=== PATIENT | female | born 1945 | race Caucasian/White ===

== ENCOUNTER 2020-07-10 18:41 | Observation (INO) | payer OTHER, SELFPAY ==
--- NOTE | ~2020-07-10 | US_ITS ---
EXAMINATION: US carotid duplex BI DATE: 07/11/2020 10:22 INDICATION: Dizziness. TECHNIQUE: Grayscale, color Doppler, and pulsed Doppler images of the cervical carotid arteries were obtained. The degree of vessel stenosis is placed in one of the following categories: normal, <50%, 5 0-69%, >=70% but less than near-occlusion, near-occlusion, or total occlusion. Note that percent sten osis relative to normal distal artery lumen diameter is indirectly measured from velocity measurement s as described by Bruno, et al. Radiology 2003; 229:340-346. COMPARISON: None. FINDINGS: RIGHT: The right common carotid artery (CCA) peak systolic velocity (PSV) is 74 cm/s. The right internal car otid artery (ICA) PSV is 57 cm/s. The right ICA end-diastolic velocity (EDV) is 21 cm/s. The right IC A/CCA PSV ratio is 0.8. Grayscale and color Doppler images yield an estimate of <50% diameter reducti on from plaque in the ICA. There is antegrade flow in the right vertebral artery. LEFT: The left CCA PSV is 91 cm/s. The left ICA PSV is 63 cm/s. The left ICA EDV is 21 cm/s. The left ICA/C CA PSV ratio is 0.7. Grayscale and color Doppler images yield an estimate of <50% diameter reduction from plaque in the ICA. There is antegrade flow in the left vertebral artery. IMPRESSION: 1. <50% stenosis in the right internal carotid artery. 2. <50% stenosis in the left internal carotid artery. Reviewed, dictated and finalized at location A. [employer]
--- NOTE | 2020-07-10 19:15 | ADMGEN ---
This patient, Marielos Botello, was admitted to Medical Room 256-. Patient/family oriented to hospital policies and general routines including ID bracelet, bed and alarms, visiting hours, pain management, procedures, bathroom and other care routines, personal items, smoking policy, room service/diet, and visiting hours. Information on how to activate the Rapid Response Team has been discussed. Patient/Family are encouraged to report perceived risks to care and to ask questions if they do not understand what they are told or what they should do.
[2020-07-10 20:00] VITALS: PULSE 81
[2020-07-10 22:00] VITALS: BP 140/78; PULSE 92; RESP 18; TEMP 36.3; O2SAT 96
[2020-07-10 22:12] VITALS: BMI 24.7
[2020-07-10 22:18] VITALS: BP 140/78; PULSE 92; RESP 18; TEMP 36.3; O2SAT 96; BMI 24.7
--- NOTE | 2020-07-10 23:38 | PM.IMHP ---
H&P: HPI History of Present Illness Date/Time: 07/10/20 23:38 Chief Complaint: Dizziness Narrative: Marielos Botello is a 75 year old female who is a direct admit from [facility]. The patient stated that she woke up around 8:00 a.m. this morning and felt dizzy she got out of bed. She has not tried any new medications. She has not had any recent upper respiratory infection no fever no chills. No recent sick contacts. The patient went to [facility] in [place] and had a CT of the brain performed which showed nothing acute no hemorrhage. The patient has had stew cerebral aneurysms in the past and has clips and coil. The patient stated that she does have a card stating that she cannot receive an MRI. [facility] does not have a neurologist and requested that the patient be seen here. Labs not appear to be abnormal. The patient was so dizzy that she had difficulty ambulating. She needed 1 assist to ambulate. Her EKG was reported to me is negative she does have hit a history of having hypertension but no previous TIAs or CVAs. The patient was nauseated earlier but did not have any vomiting she told me she did receive Zofran at [facility]. I was given report from Dr. Leung at [facility]. The patient is being admitted here as observation status on the date of service of 07/10/2020 Review of Systems Review of Systems: All systems reviewed & are unremarkable except as noted in HPI and below Constitutional: Constitutional: Reports as per HPI and Reports no additional constitutional complaints Eyes: Eyes: Reports as per HPI and Reports no additional eye complaints ENT: Reports system reviewed and no additional complaints, except as documented and Reports Normal hearing present Cardiovascular: Cardiovascular: Reports no additional cardiovascular complaints Respiratory: Respiratory: Reports no additional respiratory complaints and Reports no additional respiratory complaints Gastrointestinal: Gastrointestinal: Reports as per HPI and Reports no additional gastrointestinal complaints Musculoskeletal: Musculoskeletal: Reports no additional musculoskeletal complaints Integumentary/Breasts: Skin/Breast: Reports system reviewed and no additional complaints, except as docu and Reports as per HPI Neurologic: Reports system reviewed and no additional complaints, except as documented, Reports as per HPI and Reports Normal hearing present Psychiatric: Psychiatric: Reports no additional psychiatric complaints and Reports as per HPI Endocrine: Endocrine: Reports no additional endocrine complaints Hematologic/Lymphatic: Hematologic/Lymphatic: Reports no additional hematologic/lymphatic complaints Allergic/Immunologic: Allergic/Immunologic: Reports no additional allergic/immunologic complaints [facility] Past Medical History Medical History (Updated 07/10/20 @ 23:45 by Gabi Cole NP) AAA (abdominal aortic aneurysm) Being monitored out patient Brain aneurysm History of brain choroidal and clip COPD (chronic obstructive pulmonary disease) Depression with anxiety Hyperlipidemia Hypertension Osteopenia Tobacco abuse Surgical History Surgical History (Updated 07/10/20 @ 23:45 by Gabi Cole NP) History of appendectomy History of colonoscopy Family History Family History Mother Family history of heart disease in male family member before age 55 Family history of diabetes mellitus in first degree relative Sibling Family history of diabetes mellitus in first degree relative Father Leukemia Social History Social History (Updated 07/10/20 @ 23:46 by Gabi Cole NP) Social History: The patient lives with her who is the durable power vamp liner for healthcare. 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 Patient continues to smoke a pack a cigarettes a day for 50 years. No alcohol marijuana or illicit drugs. T
[2020-07-11] VITALS (9 sets, daily range): BP systolic 141–182; BP diastolic 83–117; PULSE 66–100; RESP 16–20; TEMP 35.9–36.6; O2SAT 91–97
--- NOTE | 2020-07-11 | ECHO_ITS ---
Patient Info Name: Marielos Botello Age: 75 years : 1945 Gender: Female Ht: 62 in Wt: 135 lbs BSA: 1.65 m2 HR: 85 bpm BP: 146 / 92 mmHg Heart Rhythm: Sinus Rhythm Technical Quality: Good Exam Date: 07/11/2020 8:10 AM Exam Location: [facility] Pulmonary Exam Room: 256 Patient Status: Inpatient Admit Date: 07/10/2020 Staff Ordering Physician: Gabi Cole NP Compliance Testing Analyst: Keily Jacques RDCS Attending Provider: Anderson Murphy MD Referring Physician: Douglas MCDONALD; Exam Type: CA echo doppler w bubble study Study Info Indications - DIZZINESS Complete two-dimensional, color flow and Doppler transthoracic echocardiogram is performed with agitated saline. Contrast/Agitated Saline Contrast/Ag. Saline: Agitated Saline Amount: 20.00 ml Summary 1. Left ventricular chamber dimension is normal. 2. Left ventricular systolic function is normal, estimated at 65-70%. 3. There is moderately increased left ventricular wall thickness. 4. The left ventricular diastolic function is grade I diastolic dysfunction. 5. Intact interatrial septum visualized by color flow and agitated saline imaging. 6. There is mild aortic valve calcification. 7. There is mild tricuspid valve regurgitation. 8. There is mild mitral valve regurgitation. 9. The mitral valve annulus is severely calcified. 10. The mitral valve has thickened leaflets. Left Ventricle Left ventricular chamber dimension is normal. Left ventricular systolic function is normal, estimated at 65-70%. There is moderately increased left ventricular wall thickness. The left ventricular diastolic function is grade I diastolic dysfunction. Right Ventricle Right ventricular chamber dimension is normal. Right ventricular systolic function is normal. Left Atria Left atrial chamber dimension is normal. Right Atria Right atrial chamber dimension is normal. Atrial Septum Intact interatrial septum visualized by color flow and agitated saline imaging. Aortic Valve The aortic valve is trileaflet. There is mild aortic valve sclerosis. There is no aortic valve stenosis. There is trace aortic valve regurgitation. There is mild aortic valve calcification. Pulmonic Valve The pulmonic valve is normal. There is no pulmonic valve stenosis. Trivial pulmonic insufficiency. Mitral Valve The mitral valve has thickened leaflets. There is no mitral valve stenosis. There is mild mitral valve regurgitation. The mitral valve annulus is severely calcified. Tricuspid Valve The tricuspid valve leaflets are normal. There is no significant tricuspid valve stenosis. There is mild tricuspid valve regurgitation. No pulmonary hypertension, estimated pulmonary arterial systolic pressure is 32 mmHg. Pericardium/Pleural The pericardium appears normal. There is no pericardial effusion. Inferior Vena Cava Normal inferior vena cava with >50% collapse upon inspiration consistent with normal right atrial pressure, 10 mmHg. Aorta The aortic root size at the sinus of Valsalva is normal. There is mild aortic atherosclerosis. Left Ventricular Outflow Tract Name Value Normal LVOT 2D LVOT Diameter
[2020-07-11] MEDS: SODIUM CHLORIDE 0.9% IV 1,000 ML 100 ML IV CONT ×2 (00:40→10:31)
[2020-07-11 00:54] LABS: Alanine Aminotransferase 21 U/L (4-35); Albumin Level 3.9 g/dL (3.5-5.1); Alkaline Phosphatase 91 U/L (38-126); Anion Gap 3 mmol/L (8-16); Aspartate Amino Transferase 30 U/L (14-36); Bilirubin,Total 0.3 mg/dL (0.2-1.3); Blood Urea Nitrogen 19 mg/dL (7-17); Calcium 9.7 mg/dL (8.4-10.2); Carbon Dioxide 33 mmol/L (22-30); Chloride 101 mmol/L (98-107); Estimated CRCL calculation 47 ml/min; Estimated Glomerular Filt Rate > 60; Glucose 116 mg/dL (65-105); Potassium 3.9 mmol/L (3.4-5.0); Sodium 137 mmol/L (137-145)
[2020-07-11 01:22] LABS: Add Urine Microscopic? YES; Appearance Urine Clear (Clear); Bilirubin Urine Negative (Negative); Blood Urine Negative (Negative); Color Urine Straw (Yellow); Glucose Urine UA Negative (Negative); Ketones Urine Negative (Negative); Leukocyte Esterase Ur Negative LEU/UL (Negative); Mucus Urine Rare /lpf; Nitrate Urine Negative (Negative); Protein Urine 2+ mg/dL (Negative); RBC Urine 0-2 /hpf (0-2); Specific Grav Ur 1.012 (1.001-1.035); Squamous Epithelial Cell Urine Rare /hpf (Few); Urobilinogen Urine Negative mg/dL (<2.0); WBC Urine 0-3 /hpf
[2020-07-11 01:40] LABS: Bacteria Urine Trace /hpf
[2020-07-11 06:00] LABS: Basophils Absolute Auto 0.1 K/mm3 (0.0-0.1); Basophils Percent Auto 0.7 % (0.2-1.2); Eosinophils Absolute Auto 0.5 K/mm3 (0-0.3); Eosinophils Percent Auto 5.2 % (0-4.4); Immature Granulocyte Absolute 0.05 K/mm3 (0.00-0.031); Immature Granulocyte Percent A 0.5 % (0-0.5); Lymphocytes Percent Auto 20.5 % (18.3-44.2); Mean Corpuscular HGB Conc 33.3 g/dl (32-36); Mean Corpuscular Hemoglobin 29.8 pg (26-34); Mean Corpuscular Volume 89.4 fl (80-100); Mean Platelet Volume 10.5 fl (7.4-10.4); Monocytes Absolute Auto 0.8 K/mm3 (0.1-0.6); Monocytes Percent Auto 7.3 % (2.6-8.5); Neutrophils Absolute Auto 6.8 K/mm3 (1.3-6.7); Neutrophils Percent Auto 65.8 % (45.5-73.1); Platelet Count Result 254 k/mm3 (150-375); Red Cell Distribution Width 14.4 % (11.5-14.5); White Blood Count 10.3 K/mm3 (4.5-10.0)
[2020-07-11 06:21] LABS: Anion Gap 2 mmol/L (8-16); Blood Urea Nitrogen 16 mg/dL (7-17); CRP 0.6 mg/dL (<1.0); Calcium 9.3 mg/dL (8.4-10.2); Carbon Dioxide 31 mmol/L (22-30); Chloride 101 mmol/L (98-107); Estimated CRCL calculation 54 ml/min; Estimated Glomerular Filt Rate > 60; Glucose 98 mg/dL (65-105); Lactate Dehydrogenase 400 U/L (313-618); Potassium 3.8 mmol/L (3.4-5.0); Sodium 134 mmol/L (137-145)
[2020-07-11 07:08] LABS: Thyroid Stimulating Hormone Reflex 0.373 uIU/mL (0.465-4.68)
[2020-07-11] MEDS: hydroCHLOROthiazide 25 MG TABLET PO (08:47)
[2020-07-11] MEDS: lisinopriL 20 MG TABLET PO (08:47)
[2020-07-11] MEDS: SIMVASTATIN 10 MG TABLET PO (08:47)
[2020-07-11] MEDS: ASPIRIN 81 MG CHEWABLE TABLET 324 MG PO (08:48)
[2020-07-11 10:10] LABS: Total Triiodothyronine (T3) 1.15 NG/ML (0.97-1.69)
--- NOTE | 2020-07-11 13:44 | WPDNEURCNPN ---
Assessment and Plan Assessment and plan (1) Depression with anxiety: Code(s): F41.8 - Other specified anxiety disorders Status: Chronic (2) AAA (abdominal aortic aneurysm): Code(s): I71.4 - Abdominal aortic aneurysm, without rupture Status: Chronic (3) Vertigo: Code(s): R42 - Dizziness and giddiness Status: Acute Additional Plan Reviewed all the information as the patient cannot have the MRI of the brain I will talk to her about the possibility of doing CTA to evaluate the intra and extracranial circulation in the meantime she will continue the medication as such and also echocardiogram. Consult date: 07/11/20 Time Seen: 13:44 HPI: Marielos Botello is a 75 year old female admitted to the hospital on transfer from [facility]. As per the information available she woke up around 8:00 a.m. felt dizzy when she got out of the bed. She gave no history of any new medications, respiratory illness, and no recent contact with anyone sickness. She went to [facility] in [place] where CT scan of the head was done which came back negative. Patient has had cerebral aneurysm in the past with clipping and coiling. So she could not have MRI of the brain she was transferred here for the further care she was extremely dizzy to the point that she was unable to ambulate. Her EKG was negative with no evidence of atrial fibrillations. She had not vomited but she had received Zofran at [facility]. She has ongoing history of 1. Abdominal aortic aneurysm which is being followed as an outpatient 2. Clipped aneurysm 3. COPD 4. Hypertension 5. Osteopenia and 6. Tobacco abuse. Medications include BuSpar 5 mg p.r.n. in addition to other medications. Review of Systems Review of Systems: All systems reviewed & are unremarkable except as noted in HPI and below [facility] Past Medical History Medical History (Updated 07/10/20 @ 23:45 by Gabi Cole NP) AAA (abdominal aortic aneurysm) Being monitored out patient Brain aneurysm History of brain choroidal and clip COPD (chronic obstructive pulmonary disease) Depression with anxiety Hyperlipidemia Hypertension Osteopenia Tobacco abuse Surgical History Surgical History History of appendectomy History of colonoscopy Family History Family History Mother Family history of heart disease in male family member before age 55 Family history of diabetes mellitus in first degree relative Sibling Family history of diabetes mellitus in first degree relative Father Leukemia Social History Social History Social History: The patient lives with her who is the durable power associate attorney for healthcare. 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 Patient continues to smoke a pack a cigarettes a day for 50 years. No alcohol marijuana or illicit drugs. The patient is a full code. Smoking packs per day: 1 Smoking cigarettes per day: 20.0 Years smoked: 50 Smoking pack-years: 50.00 Smoking status: Current every day smoker Tobacco type: cigarettes Alcohol intake: never Substance use: never Meds Home Medications and Allergies Home Medications Medication Instructions Recorded Confirmed Type acetaminophen 500 mg PO Q6H PRN 07/10/20 07/10/20 History albuterol sulfate 1 - 2 inh INHALATION Q4-6H PRN 07/10/20 07/10/20 History albuterol sulfate 2.5 mg INHALATION Q4H PRN 07/10/20 07/10/20 History aspirin 324 mg PO DAILY 07/10/20 07/10/20 History ergocalciferol (vitamin D2) 50,000 mcg PO WEEKLY 07/10/20 07/10/20 History hydrochlorothiazide 25 mg PO DAILY 07/10/20 07/10/20 History ipratropium bromide 0.5 mg INHALATION Q6H PRN 07/10/20 07/10/20 History ipratropium bromide [Atrovent HFA] 2 puff INHALATION QID 07/10/20 07/10/20 History lisinopril 20 mg PO DAILY
--- NOTE | 2020-07-11 16:20 | PM.IMPN ---
Progress Note: A&P Assessment and Plan (1) AAA (abdominal aortic aneurysm): Code(s): I71.4 - Abdominal aortic aneurysm, without rupture Status: Chronic Assessment and Plan: Stable Monitor in the outpatient setting. (2) COPD (chronic obstructive pulmonary disease): Code(s): J44.9 - Chronic obstructive pulmonary disease, unspecified Status: Chronic Assessment and Plan: Stable Continue home meds (3) Hypertension: Code(s): I10 - Essential (primary) hypertension Status: Chronic Assessment and Plan: Continue to monitor Continue home meds. (4) Tobacco abuse: Code(s): Z72.0 - Tobacco use Status: Chronic Assessment and Plan: Nicotine patch as needed (5) Vertigo: Code(s): R42 - Dizziness and giddiness Status: Acute Assessment and Plan: CT head with no nnew findings Unable to do MRI as patient has a aneurism coil. Appreciate Neurology note. (6) Depression with anxiety: Code(s): F41.8 - Other specified anxiety disorders Status: Chronic Assessment and Plan: Stable Continue home meds. Subjective Date/time seen: 07/11/20 16:20 States that woke up dizzy. Review of Systems Review of Systems: Narrative: Had episode of dizziness upon waking up. Constitutional: Comments: no fevers, no rigors, no chills. Eyes: Comments: no vision changes. ENT: Comments: no ear pain, no throat pain, no nasal congestion. Cardiovascular: Comments: no chest pain, no leg swelling, no pnd, no orthopnea. Respiratory: Comments: no sob, no cough, no sputum production. Gastrointestinal: Comments: no n/v/abdominal pain or diarrhea. Musculoskeletal: Comments: no muscle aches or pain. Integumentary/Breasts: Comments: no rashes. Neurologic: Comments: dizziness Exam Narrative: Exam Narrative: Sitting in bed. Const: General: cooperative, healthy appearing, comfortable, no acute distress, alert, awake and Physically active Nutritional Appearance: average body habitus Orientation/consciousness: patient oriented x3 Limitations: no limitations HENMT: Head: normal to inspection and normocephalic Ears: hearing grossly normal bilaterally General nose exam: Normal external nose present Face and sinus: normal facial exam Eyes: General: appearance normal, both eyes and all related structures Pupils: Equal, round and reactive pupils present EOM: EOMs intact bilaterally Neck: Neck: normal visual inspection, no lymphadenopathy, supple and no JVD Resp: Effort & Inspection: normal respiratory effort Auscultation: clear to auscultation bilaterally Cardio: Jugular venous distension: no JVD Rate: regular rate Rhythm: regular rhythm GI: GI Palp: Yes Soft to palpation and Yes No hepatosplenomegaly present Skin: General skin exam: normal color Rashes: no rashes Wounds: no wounds Neuro: General: patient oriented x3 and CN's II-XI intact bilaterally Cranial nerves: Yes CN's II-XII intact bilaterally and Yes Equal, round and reactive pupils present Cognition (Neuro): normal cognition Speech: normal speech Gait exam (Neuro): Normal gait present Motor exam (neuro): 5/5 motor strength present throughout Extrem: General: normal to inspection, full ROM, no joint enlargement and no pedal edema Objective Data Vital Signs Vital Signs: Vital Signs - 24 hr 07/10/20 20:00 07/10/20 22:00 07/10/20 22:18 Temperature 97.3 F L 97.3 F L Pulse Rate 81 92 92 Respiratory Rate 18 18 Blood Pressure 140/78 140/78 Pulse Oximetry 96 96 07/11/20 00:00 07/11/20 04:00 07/11/20 08:00 Temperature 96.9 F L 97.2 F L 97.8 F Pulse Rate 88 85 84 Respiratory Rate 20 18 16 Blood Pressure 151/83 H 146/92 H 178/92 H Pulse Oximetry 95 92 94 07/11/20 08:15 07/11/20 08:20 07/11/20 12:00 Temperature 97.7 F Pulse Rate 76 Respiratory Rate 16 Blood Pressure 172/117 H 141/94 H 167/84 H Pulse Oximetry 94 Intake/Output Intake/Output: Int
[2020-07-11] MEDS: ACETAMINOPHEN 500 MG TABLET PO (22:27)
[2020-07-12] VITALS: BP 176/97; PULSE 80; PULSE 88; RESP 18; TEMP 36.4; O2SAT 95
[2020-07-12] MEDS: NICOTINE (*PBKC) 21 MG PATCH 1 PATCH TRANSDERM ×2 (03:29→08:11)
--- NOTE | 2020-07-12 03:30 | PC.NURSE ---
smoke smell coming from pt's room. Pt was asked several times if she was smoking in her room. Pt finally admitted she was smoking. Pt educated about no smoking policy. Education given about nicotine patch and pt consented to wearing a patch.
[2020-07-12 04:00] VITALS: BP 176/87; PULSE 76; PULSE 77; RESP 20; TEMP 36.8; O2SAT 95
[2020-07-12 08:00] VITALS: PULSE 89
[2020-07-12] MEDS: hydroCHLOROthiazide 25 MG TABLET PO (08:10)
[2020-07-12] MEDS: ASPIRIN 81 MG CHEWABLE TABLET 324 MG PO (08:10)
[2020-07-12] MEDS: SIMVASTATIN 10 MG TABLET PO (08:10)
[2020-07-12] MEDS: lisinopriL 20 MG TABLET PO (08:10)
[2020-07-12 10:00] VITALS: BP 123/75; BP 136/86; BP 151/83; PULSE 82; RESP 16; TEMP 36.7; O2SAT 95
--- NOTE | 2020-07-12 11:56 | PM.DS ---
DS: Admitting Diagnosis Admitting Diagnosis Admitting Diagnosis: Dizziness Chronic stroke Brain aneurism s/p clip HTN Tobacco dependence DS: Summary Hospital Course Hospital Course: Marielos Botello is a 75 year old female admitted to the hospital transferred from [facility]. As per medical records she woke up around 8:00 a.m. felt dizzy when she got out of the bed. She has no history of any new medications, respiratory illness, and no recent contact with anyone sick. She went to [facility] in [place] where CT scan of the head was done which came back negative. Patient has had cerebral aneurysm in the past with clipping and coiling. So she could not have MRI of the brain she was transferred here for further care she was extremely dizzy to the point that she was unable to ambulate. Her EKG was negative with no evidence of atrial fibrillations. She had not vomited but she had received Zofran at [facility]. She has ongoing history of - Abdominal aortic aneurysm which is being followed as an outpatient -. Clipped aneurysm -. COPD - Hypertension - Osteopenia and - Tobacco abuse. Medications include BuSpar 5 mg p.r.n. in addition to other medications. Patient remained asymptomatic for the rest of her hospital stay a Neurology consultation was requested we were unable to do any further evaluation as patient has aneurism clip as mentioned above. Treatment was mainly symptomatic. PT/OT eval was obtained and it was felt that patient was saved to discharge home and will follow up in the outpatient setting with her doctor. Summary 1. Left ventricular chamber dimension is normal. 2. Left ventricular systolic function is normal, estimated at 65-70%. 3. There is moderately increased left ventricular wall thickness. 4. The left ventricular diastolic function is grade I diastolic dysfunction. 5. Intact interatrial septum visualized by color flow and agitated saline imaging. 6. There is mild aortic valve calcification. 7. There is mild tricuspid valve regurgitation. 8. There is mild mitral valve regurgitation. 9. The mitral valve annulus is severely calcified. 10. The mitral valve has thickened leaflets. [facility] [address] [place] [id number] Ultrasound Report Signed Patient: Marielos Botello : 1945#: [id number] Age/Sex: 75 / FAcct:[id number] Loc: [id number] Date: 07/10/[address]: Anderson Murphy MD Ordering Physician: Gabi Cole APN Date of Service: 07/11/20 Procedure(s): US carotid duplex BI Accession Number(s): [id number] cc: Pasquale, Patricia Barrera MD; Gabi Cole APN; Anderson Murphy MD~ EXAMINATION: US carotid duplex BI DATE: 07/11/2020 10:22 INDICATION: Dizziness. TECHNIQUE: Grayscale, color Doppler, and pulsed Doppler images of the cervical carotid arteries were obtained. The degree of vessel stenosis is placed in one of the following categories: normal, <50%, 50-69%, >=70% but less than near-occlusion, near-occlusion, or total occlusion. Note that percent stenosis relative to normal distal artery lumen diameter is indirectly measured from velocity measurements as described by Bruno, et al. Radiology 2003; 229:[id number]. COMPARISON: None. FINDINGS: RIGHT: The right common carotid artery (CCA) peak systolic velocity (PSV) is 74 cm/s. The right internal carotid artery (ICA) PSV is 57 cm/s. The right ICA end-diastolic velocity (EDV) is 21 cm/s. The right ICA/CCA PSV ratio is 0.8. Grayscale and color Doppler images yield an estimate of <50% diameter reduction from plaque in the ICA. There is antegrade flow in the right vertebral artery. LEFT: The left CCA PSV is 91 cm/s. The left ICA PSV is 63 cm/s. The left ICA EDV is 21 cm/s. The left ICA/CCA PSV ratio is 0.7. Grayscale and color Doppler images yield an estimate of <50% diameter reduction from plaque in the ICA. There is antegrade flow in the lef
== END 2020-07-12 13:30 | disposition home or self-care (01) ==
PROVIDERS: Nurse Practitioner; Admitting Provider Internal Medicine; PCP Internal Medicine; Visit Provider Internal Medicine
DX: R42 Dizziness and giddiness (principal); I65.23 Occlusion and stenosis of bilateral carotid arteries; I71.4 Abdominal aortic aneurysm, without rupture; J44.9 Chronic obstructive pulmonary disease, unspecified; F41.8 Other specified anxiety disorders; I10 Essential (primary) hypertension; E78.5 Hyperlipidemia, unspecified; M85.80 Other specified disorders of bone density and structure, unspecified site; F17.210 Nicotine dependence, cigarettes, uncomplicated; Z79.82 Long term (current) use of aspirin; Z79.899 Other long term (current) drug therapy
CPT/HCPCS: 36415; 80048; 80053; 81001; 82728; 83605; 83615; 83735; 84439; 84443; 84480; 85025; 86140; 93306; 93880; 96360; 96361; 96375; 97161; 97165; A9270; G0378; G0379; J7030